=== PATIENT | female | born 1970 | race Caucasian/White ===

== ENCOUNTER → 2019-11-05 | Outpatient (CLI) | payer OTHER | END | disposition home or self-care (01) | LOC: LAB 09:26 | PROVIDERS: ATTEND Preventive Medicine Preventive Medicine/Occupational Environmental Medicine | DX: Z02.1 Encounter for pre-employment examination (principal) | CPT/HCPCS: 36415; 86706; 86735; 86762; 86765; 86787 ==

== ENCOUNTER 2020-02-01 07:26 | Emergency (ER) | payer BC, OTHER ==
[~2020-02-01] VITALS: Ht 165.1 cm; Wt 127.0 kg
[2020-02-01] MEDS ORDERED: LORazepam 0.5 MG TAB PO ONE (07:45)
[2020-02-01 08:13] LABS: Basophils # (auto) 0 10 ^3/uL (0-0.2); Basophils % (auto) 0.8 % (0.0-2.0); Eosinophils # (auto) 0.2 10 ^3/uL (0-0.8); Eosinophils % (auto) 3.2 % (0.0-7.0); Hematocrit 45.9 % (36.0-46.0); Hemoglobin 15.3 g/dL (12.2-16.2); Lymphocytes # (auto) 1.6 10 ^3/uL (0.4-5.4); Lymphocytes % (auto) 34.2 % (10.0-50.0); Mean Corpuscular Hemoglobin 31.4 pg (28.0-32.0); Mean Corpuscular Hgb Conc. 33.2 g/dL (32.0-36.0); Mean Corpuscular Volume 94.6 fL (80.0-100.0); Monocytes # (auto) 0.5 10 ^3/uL (0-1.3); Monocytes % (auto) 9.8 % (0.0-12.0); Neutrophils # (auto) 2.5 10 ^3/uL (1.6-8.6); Nucleated Red Blood Cells % 0.2 %; Platelet Count (auto) 172 10^3/uL (140-450); Red Blood Cells 4.86 10^6/uL (4.0-5.20); Red Cell Distribution Width 14.1 % (11.8-14.3); White Blood Cell 4.8 10^3/uL (4.4-10.8)
[2020-02-01 08:32] LABS: Albumin 3.6 g/dL (3.4-5.0); Anion Gap 7 (5-15); Blood Urea Nitrogen 13 mg/dL (7-18); Calcium 8.8 mg/dL (8.5-10.1); Carbon Dioxide 23 mmol/L (21-32); Chloride 110 mmol/L (98-107); Glucose 105 mg/dL (74-106); Potassium 3.9 mmol/L (3.5-5.1); Sodium 140 mmol/L (136-145)
[2020-02-01 08:38] LABS: Alanine Aminotransferase 30 U/L (13-56); Alkaline Phosphatase 90 U/L (45-117); Aspartate Aminotransferase 22 U/L (15-37); BUN/Creatinine Ratio 13.8; Bilirubin, Total 0.4 mg/dL (0.2-1.0); GFR African American 81 mL/min; GFR Non-African American 67 mL/min; Total Protein 7.9 g/dL (6.4-8.2)
[2020-02-01 18:12] VITALS: BP 165/104
== END 2020-02-01 09:15 | disposition home or self-care (01) ==
LOC: ER 07:26
DX: F41.0 Panic disorder [episodic paroxysmal anxiety] (principal); Z88.0 Allergy status to penicillin
CPT/HCPCS: 36415; 71046; 80053; 84484; 85025; 93005

== ENCOUNTER → 2020-02-23 | Outpatient (CLI) | payer BC ==
[2020-02-23 07:57] LABS: Basophils # (auto) 0 10 ^3/uL (0-0.2); Basophils % (auto) 0.7 % (0.0-2.0); Eosinophils # (auto) 0.1 10 ^3/uL (0-0.8); Eosinophils % (auto) 3.1 % (0.0-7.0); Hematocrit 43.8 % (36.0-46.0); Hemoglobin 14.7 g/dL (12.2-16.2); Lymphocytes # (auto) 0.9 10 ^3/uL (0.4-5.4); Lymphocytes % (auto) 23.3 % (10.0-50.0); Mean Corpuscular Hemoglobin 31.4 pg (28.0-32.0); Mean Corpuscular Hgb Conc. 33.5 g/dL (32.0-36.0); Mean Corpuscular Volume 93.8 fL (80.0-100.0); Monocytes # (auto) 0.5 10 ^3/uL (0-1.3); Monocytes % (auto) 12.3 % (0.0-12.0); Neutrophils # (auto) 2.4 10 ^3/uL (1.6-8.6); Neutrophils % (auto) 60.6 % (37.0-80.0); Platelet Count (auto) 149 10^3/uL (140-450); Red Blood Cells 4.67 10^6/uL (4.0-5.20); Red Cell Distribution Width 14.5 % (11.8-14.3); White Blood Cell 3.9 10^3/uL (4.4-10.8)
[2020-02-23 08:17] LABS: Albumin 3.8 g/dL (3.4-5.0); Calcium 9.2 mg/dL (8.5-10.1); Potassium 3.9 mmol/L (3.5-5.1)
[2020-02-23 08:23] LABS: Bilirubin, Total 0.5 mg/dL (0.2-1.0); Total Protein 7.8 g/dL (6.4-8.2)
== END | disposition home or self-care (01) ==
LOC: LAB 07:35
PROVIDERS: ATTEND Physician Assistant
DX: R53.83 Other fatigue (principal); R63.5 Abnormal weight gain; F41.9 Anxiety disorder, unspecified; E78.5 Hyperlipidemia, unspecified
CPT/HCPCS: 36415; 80053; 80061; 82306; 82607; 84443; 85025

== ENCOUNTER → 2020-06-23 | Day surgery (SDC) | payer BC ==
[2020-06-20 17:19] LABS: Basophils # (auto) 0 10 ^3/uL (0-0.2); Basophils % (auto) 0.6 % (0.0-2.0); Eosinophils # (auto) 0.1 10 ^3/uL (0-0.8); Eosinophils % (auto) 2.5 % (0.0-7.0); Hematocrit 41.8 % (36.0-46.0); Hemoglobin 13.9 g/dL (12.2-16.2); Lymphocytes # (auto) 1.3 10 ^3/uL (0.4-5.4); Lymphocytes % (auto) 27.8 % (10.0-50.0); Mean Corpuscular Hemoglobin 30.5 pg (28.0-32.0); Mean Corpuscular Hgb Conc. 33.3 g/dL (32.0-36.0); Mean Corpuscular Volume 91.8 fL (80.0-100.0); Monocytes # (auto) 0.5 10 ^3/uL (0-1.3); Monocytes % (auto) 10.1 % (0.0-12.0); Neutrophils # (auto) 2.8 10 ^3/uL (1.6-8.6); Nucleated Red Blood Cells % 0.1 %; Platelet Count (auto) 163 10^3/uL (140-450); Red Blood Cells 4.55 10^6/uL (4.0-5.20); Red Cell Distribution Width 14.6 % (11.8-14.3); White Blood Cell 4.7 10^3/uL (4.4-10.8)
[2020-06-20 17:24] LABS: Urine Bacteria NONE SEEN /hpf (None Seen); Urine Blood Negative /uL (Negative); Urine WBC <1 /hpf (0 - 5)
[2020-06-20 17:34] LABS: INR 0.94 (0.9-1.15); Partial Thromboplastin Time 30.1 sec (23.0-31.2)
[2020-06-20 17:50] LABS: Albumin 3.8 g/dL (3.4-5.0); Calcium 9.8 mg/dL (8.5-10.1); Potassium 3.8 mmol/L (3.5-5.1)
[2020-06-20 17:52] LABS: Bilirubin, Total 0.3 mg/dL (0.2-1.0); Total Protein 7.9 g/dL (6.4-8.2)
[~2020-06-23] VITALS: Ht 165.1 cm; Wt 127.0 kg
[~2020-06-23] MED LIST: BACL20TA PO; CLINDAMYCIN 600MG IV 50 ML IV ONE; DexAMETHasone SOD PHOS 10MG/1ML VIAL INJ ONE; HYDR-3682 PO; HYDROmorphone HCL 2 MG/ML VL IV PRN; HYDROmorphone HCL 2 MG/ML VL ONE; KETOROLAC TROMETH 30 MG/ML 1ML VIAL IV ONE; LABETALOL HCL 5 MG/ML 4ML SYRINGE IV PRN; LACTATED RINGER'S 1,000 ML IV SCH; MEPERIDINE HCL (25 MG/ML) 1ML VIAL ONE; METOCLOPRAMIDE HCL 5MG/ml INJ 2ml VIAL ONE; MIDAZOLAM HCL 1MG/1ML-2 ML VIAL IV PRN; MIDAZOLAM HCL 1MG/1ML-2 ML VIAL ONE; MORPHINE SULFATE 4 MG/ML SYR/VIAL IV PRN; ONDANSETRON HCL 4 MG/2 ML VIAL IV PRN; PROPOFOL 10 MG/ML 20 ML IV ONE; ePHEDrine SULFATE 50 MG/ML AMP IV PRN; fentaNYL CITRATE 100 MCG/2 ML VL ONE
[2020-06-23 13:15] VITALS: BP 132/84
== END | disposition home or self-care (01) ==
LOC: SUR 08:22
PROVIDERS: ATTEND Specialist
DX: N85.2 Hypertrophy of uterus (principal); R93.89 Abnormal findings on diagnostic imaging of other specified body structures; I10 Essential (primary) hypertension; E66.01 Morbid (severe) obesity due to excess calories; Z68.42 Body mass index [BMI] 45.0-49.9, adult; Z88.0 Allergy status to penicillin; Z79.899 Other long term (current) drug therapy; Z20.828 Contact with and (suspected) exposure to other viral communicable diseases; Z98.890 Other specified postprocedural states
CPT/HCPCS: 36415; 58558; 80053; 81001; 84702; 85025; 85610; 85730; 86850; 86900; 86901; J1100; J1170; J2175; J2250; J2704; J2765; J3010; J3490; U0003

== ENCOUNTER → 2020-07-07 | Day surgery (SDC) | payer BC ==
[2020-07-05 17:10] LABS: Basophils # (auto) 0.1 10 ^3/uL (0-0.2); Eosinophils # (auto) 0.1 10 ^3/uL (0-0.8); Eosinophils % (auto) 2.1 % (0.0-7.0); Hematocrit 42.5 % (36.0-46.0); Hemoglobin 14.3 g/dL (12.2-16.2); Lymphocytes # (auto) 1.6 10 ^3/uL (0.4-5.4); Lymphocytes % (auto) 25.6 % (10.0-50.0); Mean Corpuscular Hemoglobin 31.1 pg (28.0-32.0); Mean Corpuscular Hgb Conc. 33.7 g/dL (32.0-36.0); Mean Corpuscular Volume 92.3 fL (80.0-100.0); Monocytes # (auto) 0.5 10 ^3/uL (0-1.3); Monocytes % (auto) 7.9 % (0.0-12.0); Neutrophils % (auto) 63.4 % (37.0-80.0); Nucleated Red Blood Cells % 0.1 %; Platelet Count (auto) 173 10^3/uL (140-450); Red Cell Distribution Width 14.4 % (11.8-14.3); White Blood Cell 6.3 10^3/uL (4.4-10.8)
[2020-07-05 17:25] LABS: INR 0.93 (0.9-1.15); Partial Thromboplastin Time 31.3 sec (23.0-31.2)
[~2020-07-07] VITALS: Ht 165.1 cm; Wt 127.0 kg
[~2020-07-07] MED LIST changes: -CLINDAMYCIN 600MG IV 50 ML IV ONE; -DexAMETHasone SOD PHOS 10MG/1ML VIAL INJ ONE; -HYDROmorphone HCL 2 MG/ML VL IV PRN; -HYDROmorphone HCL 2 MG/ML VL ONE; -KETOROLAC TROMETH 30 MG/ML 1ML VIAL IV ONE; -LABETALOL HCL 5 MG/ML 4ML SYRINGE IV PRN; -LACTATED RINGER'S 1,000 ML IV SCH; -MEPERIDINE HCL (25 MG/ML) 1ML VIAL ONE; -METOCLOPRAMIDE HCL 5MG/ml INJ 2ml VIAL ONE; -MIDAZOLAM HCL 1MG/1ML-2 ML VIAL IV PRN; -MIDAZOLAM HCL 1MG/1ML-2 ML VIAL ONE; -MORPHINE SULFATE 4 MG/ML SYR/VIAL IV PRN; -ONDANSETRON HCL 4 MG/2 ML VIAL IV PRN; -PROPOFOL 10 MG/ML 20 ML IV ONE; +SODIUM CHLORIDE LOCK 10 ML ONE; -ePHEDrine SULFATE 50 MG/ML AMP IV PRN; -fentaNYL CITRATE 100 MCG/2 ML VL ONE
[2020-07-07] MEDS: MIDAZOLAM HCL 5 MG/ML-1ML VIAL ONE ×4 (12:17→12:23)
[2020-07-07] MEDS: fentaNYL CITRATE 100 MCG/2 ML VL ONE ×3 (12:17→12:21)
[2020-07-07] MEDS: diphenhdrAMINE HCL 50 MG/1 ML VL ONE ×2 (12:19→12:21)
[2020-07-07 12:55] VITALS: BP 133/89
== END | disposition home or self-care (01) ==
LOC: GI 11:12
PROVIDERS: ATTEND Internal Medicine Gastroenterology
DX: R10.9 Unspecified abdominal pain (principal); K51.20 Ulcerative (chronic) proctitis without complications; E66.9 Obesity, unspecified; Z68.42 Body mass index [BMI] 45.0-49.9, adult; Z20.828 Contact with and (suspected) exposure to other viral communicable diseases; Z88.0 Allergy status to penicillin; Z98.890 Other specified postprocedural states
CPT/HCPCS: 36415; 45380; 84702; 85025; 85610; 85730; 88305; J1200; J2250; J3010; J7030; U0003; 99152

== ENCOUNTER → 2022-05-07 | Outpatient (CLI) | payer BC ==
[~2022-05-07] MED LIST changes: -SODIUM CHLORIDE LOCK 10 ML ONE
[2022-05-07 13:37] LABS: Basophils # (auto) 0 10 ^3/uL (0-0.2); Basophils % (auto) 0.2 % (0.0-2.0); Eosinophils # (auto) 0.2 10 ^3/uL (0-0.8); Eosinophils % (auto) 3.8 % (0.0-7.0); Hematocrit 45.4 % (36.0-46.0); Hemoglobin 14.9 g/dL (12.2-16.2); Lymphocytes # (auto) 1.5 10 ^3/uL (0.4-5.4); Lymphocytes % (auto) 32.4 % (10.0-50.0); Mean Corpuscular Hgb Conc. 32.7 g/dL (32.0-36.0); Mean Corpuscular Volume 94.6 fL (80.0-100.0); Monocytes # (auto) 0.4 10 ^3/uL (0-1.3); Monocytes % (auto) 9.1 % (0.0-12.0); Neutrophils # (auto) 2.5 10 ^3/uL (1.6-8.6); Neutrophils % (auto) 54.5 % (37.0-80.0); Red Cell Distribution Width 14.9 % (11.8-14.3); White Blood Cell 4.7 10^3/uL (4.4-10.8)
[2022-05-07 14:30] LABS: Albumin 4.1 g/dL (3.4-5.0); Calcium 9.4 mg/dL (8.5-10.1); Potassium 4.2 mmol/L (3.5-5.1)
[2022-05-07 14:35] LABS: BUN/Creatinine Ratio 13.3; Bilirubin, Total 0.4 mg/dL (0.2-1.0); Total Protein 8.2 g/dL (6.4-8.2)
== END | disposition home or self-care (01) ==
LOC: LAB 12:56
PROVIDERS: ATTEND Nurse Practitioner Family
DX: Z00.00 Encounter for general adult medical examination without abnormal findings (principal); E78.2 Mixed hyperlipidemia; R06.02 Shortness of breath; R00.2 Palpitations; I10 Essential (primary) hypertension
CPT/HCPCS: 36415; 80053; 80061; 83880; 85025

== ENCOUNTER → 2023-09-24 | Outpatient (CLI) | payer BC ==
[2023-09-24 07:53] LABS: Basophils # (auto) 0 10 ^3/uL (0-0.2); Basophils % (auto) 0.6 % (0.0-2.0); Eosinophils # (auto) 0.1 10 ^3/uL (0-0.8); Eosinophils % (auto) 2.7 % (0.0-7.0); Hematocrit 43.7 % (36.0-46.0); Hemoglobin 14.6 g/dL (12.2-16.2); Lymphocytes # (auto) 1.5 10 ^3/uL (0.4-5.4); Lymphocytes % (auto) 31.9 % (10.0-50.0); Mean Corpuscular Hemoglobin 31.6 pg (28.0-32.0); Mean Corpuscular Hgb Conc. 33.4 g/dL (32.0-36.0); Mean Corpuscular Volume 94.6 fL (80.0-100.0); Monocytes # (auto) 0.4 10 ^3/uL (0-1.3); Monocytes % (auto) 8.7 % (0.0-12.0); Neutrophils # (auto) 2.7 10 ^3/uL (1.6-8.6); Neutrophils % (auto) 56.1 % (37.0-80.0); Red Blood Cells 4.62 10^6/uL (4.0-5.20); Red Cell Distribution Width 14.3 % (11.8-14.3); White Blood Cell 4.8 10^3/uL (4.4-10.8)
[2023-09-24 09:26] LABS: Alanine Aminotransferase 96 U/L (7-40); Albumin 4.4 g/dL (3.2-4.8); Alkaline Phosphatase 78 U/L (46-116); Anion Gap 5 (5-15); Aspartate Aminotransferase 81 U/L (13-40); BUN/Creatinine Ratio 15.2 (10.0-20.0); Blood Urea Nitrogen 12 mg/dL (9-23); Calcium 10.1 mg/dL (8.5-10.1); Carbon Dioxide 29 mmol/L (20-30); Chloride 105 mmol/L (98-107); Cholesterol 221 mg/dL (< 200); Free T3 3.55 pg/mL (2.3-4.2); Glucose 83 mg/dL (74-106); HDL Cholesterol 64 mg/dL (40-59); LDL Cholesterol 145 mg/dL (< 100); Sodium 139 mmol/L (136-145); Triglycerides 133 mg/dL (< 150)
[2023-09-24 09:27] LABS: Bilirubin, Total 0.8 mg/dL (0.2-1.0); Free T4 (Free Thyroxine) 1.1 ng/dL (0.89-1.76); Total Protein 7.7 g/dL (5.7-8.2)
== END | disposition home or self-care (01) ==
LOC: LAB 07:43
PROVIDERS: ATTEND Internal Medicine
DX: I10 Essential (primary) hypertension (principal); E78.5 Hyperlipidemia, unspecified; R00.2 Palpitations
CPT/HCPCS: 36415; 80053; 80061; 83880; 84439; 84443; 84481; 85025

== ENCOUNTER → 2023-10-06 | Outpatient (CLI) | payer BC | END | disposition home or self-care (01) | LOC: EEVIPCON → XYW 08:14 | PROVIDERS: ATTEND Internal Medicine | DX: I08.2 Rheumatic disorders of both aortic and tricuspid valves (principal); R07.9 Chest pain, unspecified | CPT/HCPCS: 93306 ==

== ENCOUNTER → 2023-11-10 | Outpatient (CLI) | payer BC ==
[2023-11-10 08:13] LABS: Triglycerides 84 mg/dL (< 150)
[2023-11-10 08:14] LABS: Alanine Aminotransferase 113 U/L (7-40); Albumin 4.6 g/dL (3.2-4.8); Alkaline Phosphatase 77 U/L (46-116); Anion Gap 10 (5-15); Aspartate Aminotransferase 92 U/L (13-40); BUN/Creatinine Ratio 14.5 (10.0-20.0); Bilirubin, Total 0.5 mg/dL (0.2-1.0); Blood Urea Nitrogen 10 mg/dL (9-23); Calcium 10.1 mg/dL (8.5-10.1); Carbon Dioxide 29 mmol/L (20-30); Chloride 101 mmol/L (98-107); Cholesterol 154 mg/dL (< 200); Glucose 90 mg/dL (74-106); HDL Cholesterol 80 mg/dL (40-59); LDL Cholesterol 61 mg/dL (< 100); Potassium 4.2 mmol/L (3.5-5.1); Sodium 140 mmol/L (136-145); Total Protein 7.7 g/dL (5.7-8.2)
== END | disposition home or self-care (01) ==
LOC: LAB 07:35
PROVIDERS: ATTEND Internal Medicine
DX: I10 Essential (primary) hypertension (principal)
CPT/HCPCS: 36415; 80053; 80061

== ENCOUNTER 2025-05-18 08:11 | Outpatient (CLI) | payer BC ==
[2025-05-18 08:39] LABS: Hematocrit 43.2 % (36.0-46.0); Hemoglobin 14.7 g/dL (12.2-16.2); Mean Corpuscular Hemoglobin 31.1 pg (28.0-32.0); Mean Corpuscular Volume 91.8 fL (80.0-100.0); Nucleated Red Blood Cells % 0.2 %
[2025-05-18 08:51] LABS: Alanine Aminotransferase 75 U/L (7-40); Albumin 4.7 g/dL (3.2-4.8); Alkaline Phosphatase 89 U/L (46-116); Anion Gap 15 (5-15); BUN/Creatinine Ratio 16.1 (10.0-20.0); Blood Urea Nitrogen 14 mg/dL (9-23); Calcium 10.2 mg/dL (8.7-10.4); Carbon Dioxide 27 mmol/L (20-31); Chloride 100 mmol/L (98-107); Glucose 105 mg/dL (74-106); Potassium 3.8 mmol/L (3.5-5.1); Sodium 142 mmol/L (136-145); Total Protein 8.0 g/dL (5.7-8.2)
[2025-05-18 08:52] LABS: Bilirubin, Total 0.8 mg/dL (0.2-1.0)
[2025-05-18 09:25] LABS: Triglycerides 135 mg/dL (< 150)
[2025-05-18 09:27] LABS: Cholesterol 187 mg/dL (< 200)
[2025-05-18 09:32] LABS: HDL Cholesterol 62 mg/dL (40-59)
== END 2025-05-18 17:00 | disposition home or self-care (01) ==
LOC: LAB 08:11
PROVIDERS: ATTEND Nurse Practitioner Family
DX: E66.9 Obesity, unspecified (principal); I47.10 Supraventricular tachycardia, unspecified; Z00.01 Encounter for general adult medical examination with abnormal findings
CPT/HCPCS: 36415; 80053; 80061; 82306; 84443; 85025